=== PATIENT | male | born 1965 | race Caucasian/White ===

== ENCOUNTER 2016-09-23 11:17 | Emergency (ER) | payer BC ==
[~2016-09-23] VITALS: Ht 182.9 cm; Wt 119.4 kg
[~2016-09-23 11:17] MED LIST: ATENOLOL25 M1 PO; ZESTORETIC,P1 TABLET PO
[2016-09-23 11:30] VITALS: BP 163/122
[2016-09-24] MEDS ORDERED: DOXYCYCLINE HY100 M3 PO (11:02)
[2016-09-24] MEDS ORDERED: LISINOPRIL10 MG PO (11:02)
[2016-09-24] MEDS ORDERED: AMLODIPINE BES2.5 MG PO (11:02)
== END 2016-09-23 12:20 | disposition left against medical advice (07) ==
LOC: EME 11:17
DX: I10 Essential (primary) hypertension (principal); Z53.21 Procedure and treatment not carried out due to patient leaving prior to being seen by health care provider

== ENCOUNTER 2016-09-23 19:47 | Observation (INO) | payer BC ==
[~2016-09-23] VITALS: Ht 182.9 cm; Wt 118.3 kg
[2016-09-23 20:26] LABS: MCH 29.7 PG (29.0-34.0); MCHC 33.4 G/DL (30.0-36.0); MCV 88.9 FL (86-99); MEAN PLAT.VOLUME 8.3 uM^3 (9.0-12.4); PLATELET COUNT 324 K/uL (156-360); RBC DIS.WIDTH-CV 14.3 % (11.8-14.6); RBC DIS.WIDTH-SD 46.1 % (39-53); RED BLOOD COUNT 4.95 M/uL (4.00-5.50); WHITE BLOOD COUNT 13.8 K/uL (4.1-10.2)
[2016-09-23 20:39] LABS: CHLORIDE 104 mEq/L (99-109); POTASSIUM 4.2 mEq/L (3.7-5.4); SODIUM 138 mEq/L (136-147)
[2016-09-23 20:40] LABS: GLUCOSE 116 mg/dL (70-99)
[2016-09-23 20:42] LABS: ANION GAP 10 MEQ/L (2-14)
[2016-09-23 20:44] LABS: GFR ESTIMATE (CALCULATED) > 59 mL/min/
[2016-09-23 20:45] LABS: UREA NITROGEN (BUN) 18 mg/dL (9-23)
[2016-09-23 20:48] LABS: TROP-I INTERPRETATION NEGATIVE; TROPONIN-I < 0.01 ng/mL (0.0-0.30)
[2016-09-24 00:02] VITALS: BP 168/90
[2016-09-24 04:58] VITALS: BP 147/87
[2016-09-24 06:05] LABS: HEMATOCRIT 42.8 % (38.0-50.0); MCH 29.9 PG (29.0-34.0); MCHC 33.6 G/DL (30.0-36.0); MCV 88.8 FL (86-99); MEAN PLAT.VOLUME 8.8 uM^3 (9.0-12.4); PLATELET COUNT 314 K/uL (156-360); RBC DIS.WIDTH-CV 14.2 % (11.8-14.6); RBC DIS.WIDTH-SD 46.3 % (39-53); RED BLOOD COUNT 4.82 M/uL (4.00-5.50); WHITE BLOOD COUNT 10.2 K/uL (4.1-10.2)
[2016-09-24 07:21] LABS: TROP-I INTERPRETATION NEGATIVE; TROPONIN-I < 0.01 ng/mL (0.0-0.30)
[2016-09-24 08:30] VITALS: BP 173/95
[2016-09-24] MEDS ORDERED: AMLODIPINE BES2.5 MG PO (11:02)
[2016-09-24] MEDS ORDERED: LISINOPRIL10 MG PO (11:02)
[2016-09-24] MEDS ORDERED: DOXYCYCLINE HY100 M3 PO (11:02)
[2016-09-24 11:21] VITALS: BP 172/90
[2016-09-24 12:30] VITALS: BP 168/89
[2016-09-24 12:42] LABS: TROP-I INTERPRETATION NEGATIVE; TROPONIN-I 0.01 ng/mL (0.0-0.30)
== END 2016-09-24 15:01 | disposition home or self-care (01) ==
LOC: EME 19:47 → 5WEST 22:09 → EDOF 22:09 → 5WEST 23:47
PROVIDERS: Hospitalist; Nurse Practitioner Adult Health
DX: R07.9 Chest pain, unspecified (principal); I10 Essential (primary) hypertension; L03.115 Cellulitis of right lower limb; G43.909 Migraine, unspecified, not intractable, without status migrainosus; Z82.49 Family history of ischemic heart disease and other diseases of the circulatory system; F17.200 Nicotine dependence, unspecified, uncomplicated; D72.829 Elevated white blood cell count, unspecified; R51 Headache; T46.4X6A Underdosing of angiotensin-converting-enzyme inhibitors, initial encounter; Z91.128 Patient's intentional underdosing of medication regimen for other reason; Z88.0 Allergy status to penicillin; Z88.2 Allergy status to sulfonamides
CPT/HCPCS: 71020; 80048; 84484; 85027; 93005; 99281; 99285; G0378; J7050

== ENCOUNTER 2016-10-07 07:30 | Observation (INO) | payer BC ==
[~2016-10-07] VITALS: Ht 182.9 cm; Wt 117.0 kg
[~2016-10-07 07:30] MED LIST changes: +AMLODIPINE BES2.5 MG PO; +DOXYCYCLINE HY100 M3 PO; +LISINOPRIL10 MG PO
[2016-10-07 08:29] LABS: BASOPHIL COUNT 0.1 K/uL (0-0.1); EOSINOPHIL (%) 1.7 % (0-5); EOSINOPHIL COUNT 0.2 K/uL (0-0.3); HEMATOCRIT 44.1 % (38.0-50.0); IMMATURE GRANULOCYTE (%) 0.5 % (0.0-0.7); IMMATURE GRANULOCYTE COUNT 0.1 K/uL; MCH 29.8 PG (29.0-34.0); MCHC 33.6 G/DL (30.0-36.0); MCV 88.7 FL (86-99); MEAN PLAT.VOLUME 8.6 uM^3 (9.0-12.4); MONOCYTE (%) 7.9 % (3-12); NEUTROPHIL (%) 65.1 % (45-76); PLATELET COUNT 337 K/uL (156-360); RBC DIS.WIDTH-CV 14.2 % (11.8-14.6); RBC DIS.WIDTH-SD 45.7 % (39-53); RED BLOOD COUNT 4.97 M/uL (4.00-5.50); WHITE BLOOD COUNT 12.3 K/uL (4.1-10.2)
[2016-10-07 08:41] LABS: CHLORIDE 106 mEq/L (99-109); POTASSIUM 4.4 mEq/L (3.7-5.4); SODIUM 137 mEq/L (136-147)
[2016-10-07 08:43] LABS: GLUCOSE 88 mg/dL (70-99)
[2016-10-07 08:44] LABS: ANION GAP 7 MEQ/L (2-14)
[2016-10-07 08:45] LABS: TOTAL BILIRUBIN 0.3 mg/dL (0.0-1.0)
[2016-10-07 08:47] LABS: ALKALINE PHOSPHATASE 63 IU/L (3-129); GFR ESTIMATE (CALCULATED) > 59 mL/min/
[2016-10-07 08:48] LABS: UREA NITROGEN (BUN) 21 mg/dL (9-23)
[2016-10-07 09:00] LABS: TROP-I INTERPRETATION NEGATIVE; TROPONIN-I < 0.01 ng/mL (0.0-0.30)
[2016-10-07] MEDS ORDERED: NORVASC2.5 MG PO (11:39)
[2016-10-07] MEDS ORDERED: PRINIVIL10 MG PO (11:39)
[2016-10-07] MEDS ORDERED: NORCO 5/3251 TABLET PO (11:39)
[2016-10-07 14:07] VITALS: BP 159/93
[2016-10-07 15:52] LABS: TROP-I INTERPRETATION NEGATIVE; TROPONIN-I < 0.01 ng/mL (0.0-0.30)
[2016-10-07 20:17] VITALS: BP 145/86
[2016-10-07 21:06] LABS: TROP-I INTERPRETATION NEGATIVE; TROPONIN-I < 0.01 ng/mL (0.0-0.30)
[2016-10-08 04:28] VITALS: BP 134/98
[2016-10-08 06:39] LABS: ANION GAP 9 MEQ/L (2-14); CHLORIDE 106 MEQ/L (99-109); GFR ESTIMATE (CALCULATED) > 59 mL/min/; GLUCOSE 79 mg/dL (70-99); POTASSIUM 5.1 MEQ/L (3.7-5.4); SAMPLE HEMOLYSIS CHECK 0; SAMPLE ICTERIC CHECK 0; SAMPLE LIPEMIA CHECK 0; SODIUM 140 MEQ/L (136-147); UREA NITROGEN (BUN) 18 mg/dL (9-23)
[2016-10-08 08:22] VITALS: BP 155/92
[2016-10-08] MEDS ORDERED: LOPRESSOR25 MG PO (10:26)
[2016-10-08] MEDS ORDERED: ASPIR-LOW81 MG PO (10:27)
== END 2016-10-08 10:45 | disposition home or self-care (01) ==
LOC: EME 07:30 → 5WEST 12:44 → EDOF 12:44 → 5WEST 14:02
PROVIDERS: Emergency Medicine; Internal Medicine
DX: R07.9 Chest pain, unspecified (principal); I10 Essential (primary) hypertension; R61 Generalized hyperhidrosis; F17.200 Nicotine dependence, unspecified, uncomplicated; Z82.49 Family history of ischemic heart disease and other diseases of the circulatory system; Z88.0 Allergy status to penicillin; Z88.2 Allergy status to sulfonamides
CPT/HCPCS: 70450; 71275; 76705; 80048; 80053; 84484; 85025; 93005; 99281; 99285; G0378; J7030; J7040

== ENCOUNTER 2017-03-02 16:33 | Emergency (ER) | payer OTHER, BC ==
[~2017-03-02] VITALS: Ht 182.9 cm; Wt 115.9 kg
[~2017-03-02 16:33] MED LIST changes: +ASPIR-LOW81 MG PO; +LOPRESSOR25 MG PO; +NORCO 5/3251 TABLET PO; +NORVASC2.5 MG PO; +PRINIVIL10 MG PO
[2017-03-02] MEDS ORDERED: LORTAB 5-325 M1 EACH PO (21:15)
[2017-03-02 22:13] VITALS: BP 123/83
== END 2017-03-02 22:14 | disposition home or self-care (01) ==
LOC: EME 16:33
DX: S46.211A Strain of muscle, fascia and tendon of other parts of biceps, right arm, initial encounter (principal); X50.9XXA Other and unspecified overexertion or strenuous movements or postures, initial encounter; Y93.89 Activity, other specified; I10 Essential (primary) hypertension; F17.200 Nicotine dependence, unspecified, uncomplicated; Z87.442 Personal history of urinary calculi; Z88.0 Allergy status to penicillin; Z88.8 Allergy status to other drugs, medicaments and biological substances
CPT/HCPCS: 73060; 73070; 73218; 99281; 99285; J2270; J2405; J7030